=== PATIENT | male | born 2000 | race American Indian/Alaskan Native ===

== ENCOUNTER 2023-03-30 16:20 | Emergency (ER) | payer OTHER ==
[~2023-03-30] VITALS: Ht 167.6 cm; Wt 34.4 kg
[2023-03-30 17:03] LABS: BASOPHILS 0.2 % (0-2); EOSINOPHILS 0.2 % (0-6); HEMATOCRIT 43.8 % (35.0-50.0); HEMOGLOBIN 14.7 g/dL (12.0-18.0); LYMPHOCYTES 10.2 % (24-44); MCH 29.1 (27-36); MCHC 33.7 g/dl (30-36); MCV 86.5 fl (81-99); MONOCYTES 5.1 % (0-12); NEUTROPHILS 84.3 % (39-80); PLATELET COUNT 248 K/uL (140-440); RBC 5.06 M/ul (4.3-5.7)
[2023-03-30 17:19] LABS: ALBUMIN 4.6 g/dL (3.4-5.0); ALBUMIN/GLOBULIN RATIO 1.39 (1.1-2.4); ANION GAP 18.6 (7-21); BUN/CREATININE RATIO 12.38 (6.0-28.6); CALCIUM 8.9 mg/dL (8.5-10.1); CREATININE, SERUM 1.13 mg/dL (0.70-1.30); POTASSIUM 3.6 mmol/L (3.5-5.1); PROTEIN, TOTAL 7.9 g/dL (6.4-8.2)
[2023-03-30 18:11] LABS: BILIRUBIN, URINE NEGATIVE (negative); BLOOD/HGB, URINE NEGATIVE (Negative); KETONE, URINE NEGATIVE (Negative); LEUK ESTERASE, URINE NEGATIVE (negative); NITRITE, URINE NEGATIVE (negative); PH, URINE 8.5 (5-7)
[2023-03-30] MEDS ORDERED: KRISTALOSE20 GM PO (18:14)
[2023-03-30 18:18] LABS: BACTERIA, URINE NONE SEEN /hpf (negative); CASTS, URINE NONE SEEN \\lpf; COLLECTION TYPE, URINE CLEAN CATCH; CRYSTALS, URINE NONE SEEN (0-1+); EPITHELIAL CELLS, URINE NONE SEEN /lpf (0-1+); REFLEX CULTURE, URINE No (No)
[2023-03-30 18:30] VITALS: BP 110/67
== END 2023-03-30 18:31 | disposition home or self-care (01) ==
LOC: ED 16:20
PROVIDERS: Emergency Medicine
DX: K59.00 Constipation, unspecified (principal); Z59.00 Homelessness unspecified
CPT/HCPCS: 36415; 74177; 80053; 81001; 85025; 96375; 99284-25; J1885; J2405; Q9967

== ENCOUNTER 2024-04-05 10:37 | Emergency (ER) | payer OTHER ==
[~2024-04-05] VITALS: Ht 167.6 cm; Wt 83.6 kg
[~2024-04-05 10:37] MED LIST: KRISTALOSE20 GM PO
[2024-04-05] MEDS ORDERED: ondansetron HCL 4 MG/2 ML VIAL IV ONE (11:00)
[2024-04-05] MEDS ORDERED: SODIUM CHLORIDE 0.9% 500 ML IV ONE (11:00)
[2024-04-05 11:11] LABS: EOSINOPHILS 1.4 % (0-6); HEMATOCRIT 44.2 % (35.0-50.0); HEMOGLOBIN 15.3 g/dL (12.0-18.0); LYMPHOCYTES 31.2 % (24-44); MCHC 34.7 g/dl (30-36); MCV 86.4 fl (81-99); NEUTROPHILS 54.4 % (39-80); PLATELET COUNT 247 K/uL (140-440); RBC 5.12 M/ul (4.3-5.7); RDW 15.3 (10.5-15.0)
[2024-04-05 11:28] LABS: ALBUMIN 4.7 g/dL (3.4-5.0); ALBUMIN/GLOBULIN RATIO 1.47 (1.1-2.4); ANION GAP 17.3 (7-21); BILIRUBIN, TOTAL 0.7 ng/dL (0.2-1.0); BUN/CREATININE RATIO 7.37 (6.0-28.6); CALCIUM 10.2 mg/dL (8.5-10.1); CREATININE, SERUM 1.22 mg/dL (0.70-1.30); POTASSIUM 3.3 mmol/L (3.5-5.1); PROTEIN, TOTAL 7.9 g/dL (6.4-8.2)
[2024-04-05] MEDS ORDERED: droPERidol 5 MG/2 ML VIAL IV ONE (11:45)
[2024-04-05 12:59] LABS: BILIRUBIN, URINE POSITIVE (negative); BLOOD/HGB, URINE NEGATIVE (Negative); KETONE, URINE SMALL (Negative); LEUK ESTERASE, URINE NEGATIVE (negative); NITRITE, URINE NEGATIVE (negative)
[2024-04-05] MEDS ORDERED: ONDANSETRON ODT4 MG SL (13:35)
[2024-04-05 13:49] VITALS: BP 147/77
[2024-04-05 13:49] LABS: AMPHETAMINES, URINE NEGATIVE (NEGATIVE); BARBITURATES, URINE NEGATIVE (NEGATIVE); BENZODIAZEPINE, URINE NEGATIVE (NEGATIVE); BUPRENORPHINE, URINE NEGATIVE (NEGATIVE); CANNABINOID, URINE POSITIVE (NEGATIVE); COCAINE, URINE NEGATIVE (NEGATIVE); ECSTASY, URINE NEGATIVE (NEGATIVE); FENTANYL, URINE NEGATIVE (NEGATIVE); METHADONE, URINE NEGATIVE (NEGATIVE); OPIATES, URINE NEGATIVE (NEGATIVE); OXYCODONE, URINE NEGATIVE (NEGATIVE); PHENCYCLIDINE, URINE NEGATIVE (NEGATIVE)
== END 2024-04-05 13:49 | disposition home or self-care (01) ==
LOC: ED 10:37
PROVIDERS: Emergency Medicine
DX: R11.2 Nausea with vomiting, unspecified (principal)
CPT/HCPCS: 36415; 74176; 80053; 80307; 81003; 83690; 83735; 85025; 96374; 99284-25; J2405; J7040